=== PATIENT | male | born 1975 | race Caucasian/White ===

== ENCOUNTER 2017-10-29 13:06 | Emergency (ER) | payer BC ==
[2017-10-29 14:00] VITALS: BP 140/79; PULSE 77; RESP 20; TEMP 99.3
[2017-10-29 14:40] LABS: Amphetamine Screen,Urine Not Detected (NotDetected); Barbiturate Screen,Urine Not Detected (NotDetected); Benzodiazepines Screen,Urine Not Detected (NotDetected); Cocaine Screen,Urine Not Detected (NotDetected); Methadone Screen, Urine Not Detected (NotDetected); Opiate Screen,Urine Not Detected (NotDetected); Oxycodone Screen, Urine Not Detected (NotDetected); Phencyclidine Screen,Urine Not Detected (NotDetected); Tricyclic Antidepressant,Urine Not Detected (NotDetected); Urn Cannabinoid Scrn Not Detected (NotDetected)
--- NOTE | 2017-10-29 15:10 | ED ---
Psych HPI - General Chief Complaint: Psychiatric Symptoms Stated Complaint: Mental Health Eval Time Seen by Provider: 10/29/17 14:02 Source: patient, family, RN notes reviewed Mode of arrival: ambulatory Limitations: no limitations - History of Present Illness Initial Comments: 41-year-old male presents emergency from for psychiatric evaluation. Patient states she's having racing thoughts, anxiety. Patient is not suicidal. Patient states she just cannot tolerate the patient thoughts. Patient states she's been admitted several times in the past. Denies illicit drug use he doesn 't consume alcohol use. Patient has no physical complaints. Patient states he used to be on psychiatric medications though discontinued them himself. - Related Data Home Medications Medication Instructions Recorded Confirmed No Known Home Medications [No 10/29/17 10/29/17 Known Home Medications] Allergies Allergy/AdvReac Type Severity Reaction Status Date / Time Penicillins Allergy Unknown Verified 10/29/17 14:14 Childhood Review of Systems ROS Statement: Those systems with pertinent positive or pertinent negative responses have been documented in the HPI. ROS Other: All systems not noted in ROS Statement are negative. Past Medical History Past Medical History: No Reported History History of Any Multi-Drug Resistant Organisms: None Reported Past Surgical History: Joint Replacement, Orthopedic Surgery Past Anesthesia/Blood Transfusion Reactions: No Reported Reaction Past Psychological History: Anxiety, Depression Smoking Status: Current every day smoker Past Alcohol Use History: Heavy Past Drug Use History: Marijuana General Exam Limitations: no limitations General appearance: alert, in no apparent distress Head exam: Present: atraumatic, normocephalic, normal inspection ENT exam: Present: normal exam, normal oropharynx, mucous membranes moist, TM's normal bilaterally Neck exam: Present: normal inspection. Absent: tenderness, meningismus, lymphadenopathy Respiratory exam: Present: normal lung sounds bilaterally. Absent: respiratory distress, wheezes, rales, rhonchi, stridor Cardiovascular Exam: Present: regular rate, normal rhythm, normal heart sounds. Absent: systolic murmur, diastolic murmur, rubs, gallop, clicks Psychiatric exam: Present: flat affect Skin exam: Present: warm, dry, intact, normal color. Absent: rash Course Vital Signs 10/29/17 13:56 Temperature 99.3 F Pulse Rate 77 Respiratory 20 Rate Blood Pressure 140/79 O2 Sat by Pulse 96 Oximetry Medical Decision Making - Medical Decision Making 41-year-old male presented for psychiatric evaluation. Patient was evaluated by EPS case discussed with on-call psychiatrist Dr. Santana who recommends patient be discharged with outpatient services. Patient is not suicidal or homicidal. Patient does have some anxiety issues. - Lab Data Lab Results 10/29/17 Range/Units 14:08 Urine Opiates Screen Not Detected (NotDetected) Ur Oxycodone Screen Not Detected (NotDetected) Urine Methadone Screen Not Detected (NotDetected) Ur Propoxyphene Screen Not Detected (NotDetected) Ur Barbiturates Screen Not Detected (NotDetected) U Tricyclic Antidepress Not Detected (NotDetected) Ur Phencyclidine Scrn Not Detected (NotDetected) Ur Amphetamines Screen Not Detected (NotDetected) U Methamphetamines Scrn Not Detected (NotDetected) U Benzodiazepines Scrn Not Detected (NotDetected) Urine Cocaine Screen Not Detected (NotDetected) U Marijuana (THC) Screen Not Detected (NotDetected) Disposition Clinical Impression: Anxiety Disposition: HOME SELF-CARE Condition: Stable Instructions: Generalized Anxiety Disorder (ED) Additional Instructions: Please return to the Emergency Department if symptoms worsen or any other concerns. Referrals: Bandar Shannon MD [Primary Care Provider] - 1-2 days Time of Disposition: 16:05
== END 2017-10-29 16:21 | disposition home or self-care (01) ==
LOC: EC 13:06
DX: F41.9 Anxiety disorder, unspecified (principal); F17.200 Nicotine dependence, unspecified, uncomplicated; Z88.0 Allergy status to penicillin
CPT/HCPCS: 80306; 82075; 99284

== ENCOUNTER 2017-10-30 14:10 | Inpatient (IN) | payer BC ==
--- NOTE | 2017-10-30 14:54 | ED ---
Psych HPI - General Chief Complaint: Psychiatric Symptoms Stated Complaint: Mental Health Time Seen by Provider: 10/30/17 14:35 Source: patient, RN notes reviewed Mode of arrival: ambulatory Limitations: no limitations - Related Data Home Medications Medication Instructions Recorded Confirmed No Known Home Medications [No 10/29/17 10/30/17 Known Home Medications] Allergies Allergy/AdvReac Type Severity Reaction Status Date / Time Penicillins Allergy Unknown Verified 10/30/17 14:48 Childhood Review of Systems ROS Statement: Those systems with pertinent positive or pertinent negative responses have been documented in the HPI. ROS Other: All systems not noted in ROS Statement are negative. Past Medical History Past Medical History: No Reported History History of Any Multi-Drug Resistant Organisms: None Reported Past Surgical History: Joint Replacement, Orthopedic Surgery Past Anesthesia/Blood Transfusion Reactions: No Reported Reaction Past Psychological History: Anxiety, Depression Smoking Status: Current every day smoker Past Alcohol Use History: Heavy Past Drug Use History: Marijuana General Exam Limitations: no limitations General appearance: alert, in no apparent distress Head exam: Present: atraumatic, normocephalic, normal inspection Eye exam: Present: normal appearance, PERRL, EOMI. Absent: scleral icterus, conjunctival injection, periorbital swelling ENT exam: Present: normal exam, normal oropharynx, mucous membranes moist, TM's normal bilaterally Neck exam: Present: normal inspection, full ROM. Absent: tenderness, meningismus, lymphadenopathy Respiratory exam: Present: normal lung sounds bilaterally. Absent: respiratory distress, wheezes, rales, rhonchi, stridor Cardiovascular Exam: Present: regular rate, normal rhythm, normal heart sounds. Absent: systolic murmur, diastolic murmur, rubs, gallop, clicks Neurological exam: Present: alert, oriented X3, CN II-XII intact Psychiatric exam: Present: anxious Skin exam: Present: warm, dry, intact, normal color. Absent: rash Course Vital Signs 10/30/17 14:31 Temperature 98.7 F Pulse Rate 100 Respiratory 20 Rate Blood Pressure 174/88 O2 Sat by Pulse 100 Oximetry Medical Decision Making - Lab Data Lab Results 10/30/17 Range/Units 14:39 Urine Opiates Screen Not Detected (NotDetected) Ur Oxycodone Screen Not Detected (NotDetected) Urine Methadone Screen Not Detected (NotDetected) Ur Propoxyphene Screen Not Detected (NotDetected) Ur Barbiturates Screen Not Detected (NotDetected) U Tricyclic Antidepress Not Detected (NotDetected) Ur Phencyclidine Scrn Not Detected (NotDetected) Ur Amphetamines Screen Not Detected (NotDetected) U Methamphetamines Scrn Not Detected (NotDetected) U Benzodiazepines Scrn Not Detected (NotDetected) Urine Cocaine Screen Not Detected (NotDetected) U Marijuana (THC) Screen Not Detected (NotDetected) Disposition Clinical Impression: Bipolar disorder Disposition: ADMITTED IP TO THIS HOSP
[2017-10-30 15:50] LABS: Amphetamine Screen,Urine Not Detected (NotDetected); Barbiturate Screen,Urine Not Detected (NotDetected); Benzodiazepines Screen,Urine Not Detected (NotDetected); Cocaine Screen,Urine Not Detected (NotDetected); Methadone Screen, Urine Not Detected (NotDetected); Opiate Screen,Urine Not Detected (NotDetected); Oxycodone Screen, Urine Not Detected (NotDetected); Phencyclidine Screen,Urine Not Detected (NotDetected); Tricyclic Antidepressant,Urine Not Detected (NotDetected); Urn Cannabinoid Scrn Not Detected (NotDetected)
[2017-10-30] MEDS ORDERED: ZIPRASIDONE 20 MG VIAL IM PRN (17:04)
[2017-10-30] MEDS ORDERED: MAGNESIUM HYDROXIDE 2,400 MG/10 ML CUP PO PRN (17:04)
[2017-10-30] MEDS ORDERED: MAG HYDROX/AL HYDROX/SIMETH 30 ML CUP PO PRN (17:04)
[2017-10-30 17:13] VITALS: BMI 41.2
[2017-10-30] MEDS: LORazepam 1 MG TAB PO PRN (17:21)
[2017-10-30] MEDS: NICOTINE 21MG/24HR PATCH TRANSDERM SCH (17:21)
[2017-10-31] MEDS: LORazepam 1 MG TAB PO PRN (08:21)
[2017-10-31] MEDS: NICOTINE 21MG/24HR PATCH TRANSDERM SCH (08:21)
[2017-10-31 09:10] LABS: Basophils # (A) 0.1 k/uL (0-0.2); Basophils % (A) 1 %; Eosinophils # (A) 0.1 k/uL (0-0.7); Eosinophils % (A) 2 %; HCT 49.4 % (39.0-53.0); HGB 16.8 gm/dL (13.0-17.5); Lymphocytes # (A) 1.6 k/uL (1.0-4.8); Lymphocytes % (A) 29 %; MCH 31.7 pg (25.0-35.0); MCHC 33.9 g/dL (31.0-37.0); MCV 93.5 fL (80.0-100.0); Mean Platelet Volume 7.6; Monocytes # (A) 0.3 k/uL (0-1.0); Monocytes % (A) 6 %; Neutrophils # (A) 3.2 k/uL (1.3-7.7); Neutrophils % (A) 60 %; Platelet Count 216 k/uL (150-450); RBC 5.29 m/uL (4.30-5.90); RDW 14.3 % (11.5-15.5); WBC 5.4 k/uL (3.8-10.6)
[2017-10-31 09:21] LABS: ALT 91 U/L (21-72); AST 42 U/L (17-59); Albumin 4.5 g/dL (3.5-5.0); Alkaline Phosphatase 61 U/L (38-126); Anion Gap 12 mmol/L; Blood Urea Nitrogen 16 mg/dL (9-20); Calcium 9.7 mg/dL (8.4-10.2); Carbon Dioxide 23 mmol/L (22-30); Chloride 108 mmol/L (98-107); Cholesterol 150 mg/dL (<200); Glucose 130 mg/dL (74-99); HDL Cholesterol 56 mg/dL (40-60); LDL Cholesterol,Calculated 79 mg/dL (0-99); Potassium 4.4 mmol/L (3.5-5.1); Sodium 143 mmol/L (137-145); Total Bilirubin 0.9 mg/dL (0.2-1.3); Total Protein 6.8 g/dL (6.3-8.2); Triglycerides 73 mg/dL (<150)
[2017-10-31 16:39] LABS: Hemoglobin A1C 5.1 % (4.0-6.0)
--- NOTE | 2017-10-31 17:28 | P.CON ---
Consult Note - . Consult date: 10/31/17 Assessment/Plan:: Mr. Reveles is a 41-year-old male with a past medical history of bipolar disorder admitted to the psych unit for severe anxiety and anger issues. We have been consulted for a medical evaluation. Patient denies having any past medical history and he does not take any medications on a regular basis. Patient has been having racing thoughts and unable to concentrate. He was having issues with anxiety and anger management. He has history of bipolar disorder and stopped taking his medication. Patient reports smoking marijuana and drinking alcohol on a regular basis. He denies having any chest pain and difficulty breathing, cough. He denies having any nausea vomiting, abdominal pain, constipation, diarrhea.. He denies having any dysuria or hematuria. Except for his anger management and anxiety issues he does not have any active complaints. During my conversation with the patient he was angry, but would not tell me what was going on. REVIEW OF SYSTEMS: NEURO:No c/o weakness of the extremties, No facial droop, No speech abnormalities. VASCULAR: Peripheral nervous system within the normal limits no edema HEMATOLOGIC: No history of easy bleeding and bruising . No recent infections . RESPIRATORY: No cough, No SOB, No chest discomfort. IMMUNE: No infections INTEGUMENT: no rashes OPHTHALMOLOGIC: No blurry vision and no eye discharge : No dysuria or hematuria CARDIAC: No chest pain , shortness of breath , paroxysmal nocturnal dyspnea MUSCULOSKELETAL : No Aches or pains in the joints or muscles. GI: No abdominal pain, Nausea or vomiting. No constipation or diarrhea. Past Medical History Past Medical History: No Reported History History of Any Multi-Drug Resistant Organisms: None Reported Past Surgical History: Joint Replacement, Orthopedic Surgery Past Anesthesia/Blood Transfusion Reactions: No Reported Reaction Past Psychological History: Anxiety, Depression Smoking Status: Current every day smoker Past Alcohol Use History: Heavy Past Drug Use History: Marijuana Home Medications Medication Instructions Recorded Confirmed No Known Home Medications [No 10/29/17 10/30/17 Known Home Medications] Allergies Allergy/AdvReac Type Severity Reaction Status Date / Time Penicillins Allergy Unknown Verified 10/30/17 14:48 Childhood General appearance: alert, in no apparent distress Head exam: Present: atraumatic, normocephalic, normal inspection Eye exam: Present: normal appearance, PERRL, EOMI. Absent: scleral icterus, conjunctival injection, periorbital swelling ENT exam: Present: normal exam, normal oropharynx, mucous membranes moist, TM's normal bilaterally Neck exam: Present: normal inspection, full ROM. Absent: tenderness, meningismus, lymphadenopathy Respiratory exam: Present: normal lung sounds bilaterally. Absent: respiratory distress, wheezes, rales, rhonchi, stridor Cardiovascular Exam: Present: regular rate, normal rhythm, normal heart sounds. Absent: systolic murmur, diastolic murmur, rubs, gallop, clicks Neurological exam: Present: alert, oriented X3, CN II-XII intact Psychiatric exam: Patient is angry Skin exam: Present: warm, dry, intact, normal color. Absent: rash ASSESSMENT Acute anxiety Bipolar disorder History of alcohol abuse History of marijuana use PLAN: Management of his anxiety and bipolar disorder as per primary services. Patient does not have any active ongoing medical issues. Patient's labs have been reviewed. Will follow the patient on as-needed basis. Thank you for the consult.
[2017-10-31] MEDS: ESCITALOPRAM 20 MG TAB PO SCH (18:03)
[2017-10-31] MEDS: OLANZapine 5 MG TAB PO SCH (18:03)
--- NOTE | 2017-10-31 21:09 | HP ---
HISTORY AND PHYSICAL IDENTIFYING DATA: Patient is a 41-year-old male. He lives alone. He was referred through the emergency room for evaluation. CHIEF COMPLAINT: The patient was depressed. He reported problems of severe anxiety and anger issues. He had racing thoughts. HISTORY OF PRESENT ILLNESS: The patient has had intermittent problems with depression over a number years. He notes that 10 years ago he had a psychiatric hospitalization for depression. At that time he got medications. He said he took them for 5 years. At 1 point, he ran out of the medications and then just stopped them. He had an admission here July 05 for anxiety and depression issues. He described a situation where he felt that someone was harassing him, it was not clear whether this was accurate or something possibly delusional. He was discharged on Abilify 10 mg a day. He says that he stopped the medication sometime in July. He was unclear about how he was doing at that time. He said the main reason for stopping the medicine is he did not like the side effects including that caused him problems with erections as well as interfered with sleep. He has not been on any psychotropic medications since then. He was somewhat vague about the issues leading up to his hospitalization now. According to the emergency room report, he came with his father. He was complaining of having increasing problems with anxiety and anger. There were no details noted. He was having racing thoughts. He had poor concentration. He reported a history of bipolar disorder. He indicated that he used alcohol on a regular basis. The patient says that he has been having some problems with depression. He feels that since he has gotten on the psychiatric unit, he has a little better outlook. He does say he is having a fair amount of anxiety. He thinks that it would be helpful to be on antidepressant medication. He also agreed to the idea that any medication for stress could be helpful for him as well. He was vague about any precipitants for coming to the hospital. He reports that his sleep has been down. He has some loss of motivation, energy and interest. He has been seen through [facility]. He is admitted for further evaluation. SUBSTANCE USE HISTORY: As above. PAST MEDICAL HISTORY: Past medical history and review of systems as per Dr. More. FAMILY AND SOCIAL HISTORY: I refer the reader to the admission note of Dr. Rosenbaum of 07/05/2017 for details. MENTAL STATUS EXAM: Patient was somewhat slowed in his movements. He spoke with a soft voice. He answered questions with brief responses. His thoughts were clear. His affect blunted. His mood reserved. He seemed somewhat distressed. There was no indication of thought disorder. On cognitive exam, he was oriented x3 and alert. Recent and remote memory were intact. He did make an effort to answer formal cognitive questions. Insight was uncertain. Judgment uncertain. Fund of knowledge and intellectual level average. PHYSICAL EXAM: As per medical consultation of Dr. More. ASSESSMENT: This 41-year-old male is diagnosed with major depression. There are questions as to whether he has had past issues with thought disorder. He has been off medications at different times. He is not able to clearly identify precipitants to his current situation. STRENGTHS: Include his ability to maintain himself free of depression without medications for extended period of time. WEAKNESS: Includes relapsing problems with depression. DIAGNOSES: 1. Major depression, recurrent with acute exacerbation, severe. 2. Rule out psychosis. RECOMMENDATIONS: Patient will be admitted for comprehensive medical psychiatric and psychosocial evaluation. We will engage the patient in individual group therapeutic activities. I had an extensive discussion with the patient regarding treatment options. He agreed to get started on an antidepressant. He also felt that medication for augmentation of his antidepressant and to help reduce stress reactions would be a positive. As such, I will start the patient on Lexapro 20 mg a day which he felt had helped him in the past. I will also start the patient on Zyprexa 5 mg twice a day. I reviewed indications for his medications. We discussed side effects and potential negative affects including metabolics. We will focus on stabilization and discharge planning. MMODL / IJN: [id number] /
[2017-11-01] MEDS: NICOTINE 21MG/24HR PATCH TRANSDERM SCH (08:16)
[2017-11-01] MEDS: LORazepam 1 MG TAB PO PRN (08:17)
[2017-11-01] MEDS: ESCITALOPRAM 20 MG TAB PO SCH (08:17)
[2017-11-01] MEDS: OLANZapine 5 MG TAB PO SCH ×2 (08:31→20:29)
--- NOTE | 2017-11-01 20:05 | PN ---
PROGRESS NOTE DATE OF SERVICE: 11/01/2017. CHIEF COMPLAINT: The patient was depressed. He reported problems with severe anxiety and anger issues. He had racing thoughts. INTERVAL HISTORY: Patient has been doing fair. He had a quiet evening last night. He said he slept fairly well. Today he has been up. He attended a couple groups yesterday and has been attending most groups today. It is noteworthy that in one group he shared "I came here to get my head straight getting put on medications." The patient reports feeling a little calmer. The patient says that he is doing somewhat better with less anxiety. He said that the problems were showing up at his work for about a week before he came into the hospital. When I tried to detail with the patient what was going on, he was not able to provide any details. At one point, he said he was not acting normal, but then could not describe it any further than that. 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 He had previously been on Abilify after his last admission in early July. He said he took it for a few weeks and then stopped it. He said he stopped it because he did not like the side effects, though he could not tell me what those side effects were. He has been off of medications until just recently. He has not had change in his general health. He tolerates his psychotropic medications. MENTAL STATUS: Patient sat without restlessness. Eye contact was fair. Psychomotor activity was slowed. He answered questions with 1 or 2 word responses. He did not say much. His affect was flat. His mood withdrawn. It was difficult to say if he was distressed. ASSESSMENT: I will continue the current diagnosis and treatment plan. I will continue psychotropic medications the same. I discussed with the patient that we might look at switching his medication just to bedtime to make it more reasonable to stay with his medication. We might consider titrating up on his medicine to a total of 15-20 mg a day. We will continue to focus on stabilization and discharge planning. NEVAEH / RAMONA: [id number] /
[2017-11-02 06:27] VITALS: RESP 16
[2017-11-02] MEDS: NICOTINE 21MG/24HR PATCH TRANSDERM SCH (08:21)
[2017-11-02] MEDS: ESCITALOPRAM 20 MG TAB PO SCH (08:21)
[2017-11-02] MEDS: OLANZapine 5 MG TAB PO SCH (08:21)
--- NOTE | 2017-11-02 20:02 | PN ---
PROGRESS NOTE DATE OF SERVICE: 11/02/2017 CHIEF COMPLAINT: The patient was depressed. He reported problems with severe anxiety and anger issues. He had racing thoughts. INTERVAL HISTORY: Patient has been doing fairly well by his report. He says his mood is better. He has a better outlook. He did attend groups today. He says he feels a little more comfortable overall in the milieu. He does not interact too much with others. He has been appropriate in his manner. He has not shown issues of thought disorder. He had a family meeting with his father today to address some discharge planning issues. It is noteworthy that father says one issue that the patient seems to struggle with is his focus on the person "Amaris." This does seem to cause a lot of distress for the patient. He is very reluctant to talk about this situation, especially with his father or with staff. The best that we can tell, much of the issue around Amaris is tied up in delusional thinking. Father believes that the patient has been making progress and should be ready to be discharged by Tuesday. The patient was in agreement with that as well. He has not had change in his general health. He tolerates his psychotropic medications. MENTAL STATUS: Patient gave fair eye contact. Psychomotor activity was slowed. Speech was monotone. He answered questions with brief responses. His thoughts were clear, his affect blunted, his mood reserved. It was difficult to say if he was distressed at all. ASSESSMENT: I will continue the current diagnosis and treatment plan. It is noted that the patient continues to obsess about the person named "Amaris." This is very likely persistent delusional thought. I will increase the patient's Zyprexa to 20 mg at bedtime. We will continue to focus on stabilization and discharge planning. I would look to discharge the patient by the end of the week. MMODL / IJN: [id number] /
[2017-11-02] MEDS: OLANZapine 10 MG TAB PO SCH (20:10)
[2017-11-03] MEDS: NICOTINE 21MG/24HR PATCH TRANSDERM SCH (08:49)
[2017-11-03] MEDS: ESCITALOPRAM 20 MG TAB PO SCH (08:49)
[2017-11-03] MEDS: ACETAMINOPHEN TAB 325 MG TAB PO PRN ×2 (14:08→20:32)
[2017-11-03] MEDS: OLANZapine 10 MG TAB PO SCH (20:32)
--- NOTE | 2017-11-03 21:42 | PN ---
PROGRESS NOTE DATE OF SERVICE: 11/03/2017. CHIEF COMPLAINT: The patient was depressed. He reported problems with severe anxiety and anger issues. He had racing thoughts. INTERVAL HISTORY: The patient has been doing fair. He says overall he thinks he is doing better. He feels a little calmer. His thoughts are clear. He says that he believes he is pretty well prepared for discharge on Tuesday. He was able to talk about discharge issues. He has not had change in his general health. He tolerates his psychotropic medications. MENTAL STATUS: Patient gave good eye contact. He was a little rigid in his manner. His affect was somewhat intense. His mood dysphoric. He did not seem to be significantly distressed. ASSESSMENT: I will continue the current diagnosis and treatment plan. I will continue psychotropic medications the same. The patient has been making progress. We will aim for discharge tomorrow. NEVAEH / RAMONA: [id number] /
[2017-11-04 02:24] VITALS: BP 124/69; PULSE 85; TEMP 97.6
[2017-11-04] MEDS: ESCITALOPRAM 20 MG TAB PO SCH (08:15)
[2017-11-04] MEDS: ACETAMINOPHEN TAB 325 MG TAB PO PRN (08:15)
--- NOTE | 2017-11-04 10:16 | DS ---
DISCHARGE SUMMARY DATE OF SERVICE: 11/04/2017 DATE OF ADMISSION: 10/30/2017 DATE OF DISCHARGE: 11/04/2017 ADMISSION AND DISCHARGE DIAGNOSES: 1. Major depression, recurrent with acute exacerbation, severe. 2. Rule out psychosis. HISTORY OF PRESENT ILLNESS: The patient is a 41-year-old male. He has had intermittent problems with depression over a number of years. He has had past psychiatric hospitalizations going back over the last 10 years. He had a recent past hospitalization at this was facility July 05, he was discharged on Abilify 10 mg a day. He said he took the medicines for a short period of time, though some time in July he stopped taking the medications and has been off medications since. He was vague about issues leading up to his hospitalization, though he could acknowledge that in the last few weeks prior to coming into the hospital, he was disorganized in his behavior. He was at his work and he said others were noticing that he was not functioning appropriately and there it is a question of a person who he focuses on that becomes an overwhelming situation for him. The best others can tell this person seems to be primarily a delusional image about a woman who he has some kind of relationship with. He was sleeping poorly. He was anxious. He had been seen through [facility], though it is unclear to what extent he continued with the followup. He was admitted for further evaluation. PAST MEDICAL HISTORY AND PHYSICAL EXAM: As per medical consultation of Dr. More. MENTAL STATUS EXAM: Patient was slowed in his movements. He spoke with a soft voice. He answered questions with brief responses. His thoughts were clear. His affect blunted. Mood reserved. He was moderately distressed. There was no immediate evidence for thought disorder. Cognition was clear. COURSE OF HOSPITALIZATION: The patient was admitted for a comprehensive medical psychiatric and psychosocial evaluation. We engaged the patient in individual and group therapeutic activities. Oh admission, the patient was started on Lexapro. The dose was titrated to 20 mg a day. He was also started on Zyprexa which was titrated up to 20 mg at bedtime. Initially, the patient was quite withdrawn. He was spend quite a bit of time in his room. He did not really interact with others. He was cooperative, though he shared very little with staff on one-to-one sessions. We had a family meeting with the patient's father. It is noted that there was not a lot of substantial information communicated regarding the patient's current situation or any issues that should be attended to as part of discharge planning. Father did make reference to the woman that the patient often focuses on, especially when he has more problems with mood difficulties. The patient himself would say very little about that situation. As his hospitalization progressed, the patient's mood improved. He had a better outlook. He was able to attend some group activities. He would come out and interact a little bit more. He was able to engage in discharge planning. CONDITION AT DISCHARGE: Patient was stable. Mood was improved. His thoughts were clear. There was no clear indication of thought disorder. RECOMMENDATIONS AND FOLLOWUP: The patient is discharged to home. DISCHARGE MEDICATIONS: 1. Prozac 20 mg a day. 2. Zyprexa 20 mg at bedtime. He has a followup appointment with Dr. Shannon in 1 to 2 days. He is referred back to [facility]. NEVAEH / RAMONA: [id number] /
== END 2017-11-04 12:49 | disposition home or self-care (01) | DRG 885 ==
LOC: EC 14:10 → 3MHU 16:12
PROVIDERS: ADMIT Psychiatry & Neurology Psychiatry; ATTEND Psychiatry & Neurology Psychiatry
DX: F33.2 Major depressive disorder, recurrent severe without psychotic features (principal); F12.90 Cannabis use, unspecified, uncomplicated; F17.200 Nicotine dependence, unspecified, uncomplicated; F41.9 Anxiety disorder, unspecified; Z79.899 Other long term (current) drug therapy; Z88.0 Allergy status to penicillin
CPT/HCPCS: 80053; 80061; 80306; 82075; 83036; 84443; 85025; 99285

== ENCOUNTER 2018-10-07 15:29 | Inpatient (IN) | payer BC ==
--- NOTE | 2018-10-07 15:48 | ED ---
Psych HPI - General Chief Complaint: Psychiatric Symptoms Stated Complaint: Mental Health Time Seen by Provider: 10/07/18 15:34 Source: patient, RN notes reviewed, old records reviewed Mode of arrival: ambulatory - History of Present Illness Initial Comments: This is a 42-year-old male the ER for evaluation by psychiatry, patient states he's having a mental break having racing thoughts having hallucinations and delusional thoughts. Significant history of the same. Currently denies any drugs or alcohol MD Complaint: altered mental status -: unknown Associated Psychiatric Symptoms: racing thoughts, auditory hallucinations History of same: Yes Quality: constant, getting worse Improves With: none Worsens With: none Associated Symptoms: denies other symptoms Treatments Prior to Arrival: none - Related Data Home Medications Medication Instructions Recorded Confirmed No Known Home Medications 10/07/18 10/07/18 Allergies Allergy/AdvReac Type Severity Reaction Status Date / Time Penicillins Allergy Unknown Unknown Verified 10/08/18 06:59 Childhood Review of Systems ROS Statement: Those systems with pertinent positive or pertinent negative responses have been documented in the HPI. ROS Other: All systems not noted in ROS Statement are negative. Past Medical History Past Medical History: No Reported History History of Any Multi-Drug Resistant Organisms: None Reported Past Surgical History: Joint Replacement, Orthopedic Surgery Past Anesthesia/Blood Transfusion Reactions: No Reported Reaction Past Psychological History: Anxiety, Depression Smoking Status: Current every day smoker Past Alcohol Use History: Heavy, Occasional Past Drug Use History: Marijuana General Exam Limitations: no limitations General appearance: alert, in no apparent distress Head exam: Present: atraumatic, normocephalic, normal inspection Eye exam: Present: normal appearance, PERRL, EOMI. Absent: scleral icterus, conjunctival injection, periorbital swelling ENT exam: Present: normal exam, mucous membranes moist Neck exam: Present: normal inspection. Absent: tenderness, meningismus, lymphadenopathy Respiratory exam: Present: normal lung sounds bilaterally. Absent: respiratory distress, wheezes, rales, rhonchi, stridor Cardiovascular Exam: Present: regular rate, normal rhythm, normal heart sounds. Absent: systolic murmur, diastolic murmur, rubs, gallop, clicks GI/Abdominal exam: Present: soft, normal bowel sounds. Absent: distended, tenderness, guarding, rebound, rigid Extremities exam: Present: normal inspection, full ROM, normal capillary refill. Absent: tenderness, pedal edema, joint swelling, calf tenderness Back exam: Present: normal inspection Neurological exam: Present: alert, oriented X3, CN II-XII intact Psychiatric exam: Present: normal affect, normal mood Skin exam: Present: warm, dry, intact, normal color. Absent: rash Course Vital Signs 10/07/18 10/07/18 10/07/18 15:31 18:54 19:59 Temperature 97.8 F 98.7 F 98.6 F Pulse Rate 82 85 Pulse Rate [ 73 Right] Respiratory 20 18 18 Rate Blood Pressure 163/107 170/99 Blood Pressure 163/90 [Right Arm] O2 Sat by Pulse 98 97 Oximetry 10/07/18 20:00 Temperature 98.6 F Pulse Rate Pulse Rate [ 73 Right] Respiratory 18 Rate Blood Pressure Blood Pressure 163/90 [Right Arm] O2 Sat by Pulse Oximetry Medical Decision Making - Medical Decision Making 42 male the ER for evasive psychiatric illness. Patient be admitted for psychiatric evaluation and treatment - Lab Data Result diagrams: 10/08/18 07:37 10/08/18 07:37 Disposition Clinical Impression: Bipolar disorder, Ayleen, Psychosis Disposition: TRANSFER TO PSYCH HOSP/UNIT Condition: Fair Is patient prescribed a controlled substance at d/c from ED?: No
[2018-10-07] MEDS ORDERED: LORazepam 1 MG TAB PO STA (18:49)
[2018-10-07] MEDS ORDERED: MAGNESIUM HYDROXIDE 2,400 MG/10 ML CUP PO PRN (19:56)
[2018-10-07] MEDS ORDERED: ACETAMINOPHEN TAB 325 MG TAB PO PRN (19:56)
[2018-10-07] MEDS ORDERED: MAG HYDROX/AL HYDROX/SIMETH 30 ML CUP PO PRN (19:56)
[2018-10-07 21:29] LABS: Appearance,Urine Clear (Clear); Bilirubin,Urine Negative (Negative); Blood,Urine Negative (Negative); Color,Urine Yellow; Glucose,Urine (UA) Negative (Negative); Ketones,Urine Negative (Negative); Leukocyte Esterase,Urine Negative (Negative); Nitrite,Urine Negative (Negative); PH, Urine 5.5 (5.0-8.0); Protein,Urine Negative (Negative); Urobilinogen,Urine <2.0 mg/dL (<2.0)
[2018-10-07] MEDS ORDERED: ZIPRASIDONE 20 MG VIAL IM PRN (21:41)
[2018-10-07] MEDS ORDERED: LORazepam 1 MG TAB PO PRN (21:42)
[2018-10-07] MEDS: NICOTINE 14MG/24HR PATCH TRANSDERM SCH (22:00)
--- NOTE | 2018-10-08 06:54 | P.MDCNMH ---
History of Present Illness H&P Date: 10/08/18 Chief Complaint: Medical evaluation 42-year-old male with no significant past medical history. Patient was brought to the hospital for psychiatric evaluation. Patient reports that his father brought to the hospital due to racing and delusional thoughts. He denies any suicidal or homicidal ideation. He denies any physical complaints at this time denies any fevers chills denies any coughing chest pain or trouble breathing denies any abdominal pain nausea vomiting denies any GI bleeding denies any changes in his urinary or bowel habits. Review of Systems Pertinent positives as noted in HPI. All other systems were reviewed and are negative Past Medical History Past Medical History: No Reported History History of Any Multi-Drug Resistant Organisms: None Reported Past Surgical History: Joint Replacement, Orthopedic Surgery Past Anesthesia/Blood Transfusion Reactions: No Reported Reaction Past Psychological History: Anxiety, Depression Smoking Status: Current every day smoker Past Alcohol Use History: Heavy, Occasional Past Drug Use History: Marijuana Medications and Allergies Home Medications Medication Instructions Recorded Confirmed Type No Known Home Medications 10/07/18 10/07/18 History Allergies Allergy/AdvReac Type Severity Reaction Status Date / Time Penicillins Allergy Unknown Verified 10/07/18 16:02 Childhood Physical Exam Vitals: Vital Signs Temp Pulse Resp BP Pulse Ox 10/07/18 18:54 98.7 F 85 18 170/99 97 10/07/18 15:31 97.8 F 82 20 163/107 98 Intake and Output 10/07/18 10/07/18 10/08/18 14:59 22:59 06:59 Other: Weight 145.15 kg Constitutional: No acute distress, conversant, pleasant Eyes: Anicteric sclerae, moist conjunctiva, no lid-lag Pupils equal round reactive to light ENMT: NC/AT Oropharynx clear, no erythema, exudates Neck: Supple, FROM, no masses, or JVD No carotid bruits No thyromegaly Lungs: Clear to auscultation Clear to percussion Normal respiratory effort, no accessory muscle use Cardiovascular: Heart regular in rate and rhythm, No murmurs, gallops, or rubs No peripheral edema Abdominal: Soft Nontender, no guarding, rebound or rigidity Abdomen moving with respiration Normoactive bowel sounds No hepatomegaly, No splenomegaly No palpable mass No abdominal wall hernia noted Skin: Normal temperature, tone, texture, turgor No induration No subcutaneous nodules No rash, lesions No ulcers Extremities: No digital cyanosis No clubbing Pedal pulses intact and symmetrical Radial pulses intact and symmetrical No calf tenderness Psychiatric: Alert and oriented to person, place and time Exhibiting paranoid behavior Poor judgment Neuro Muscles Strength 5/5 in all 4 extremities Sensation to light touch grossly present throughout Cranial nerves II-XII grossly intact No focal sensory deficits Lymphatics: no palpable cervical or supraclavicular , or inguinal lymph nodes Cranial Nerve Examination - Cranial Nerves Cranial Nerve II- Optic: Intact Cranial Nerve III- Oculomotor: Intact Cranial Nerve IV- Trochlear: Intact Cranial Nerve V- Trigeminal: Intact Cranial Nerve - Abducens: Intact Cranial Nerve VII- Facial: Intact Cranial Nerve VIII- Auditory: Intact Cranial Nerve IX- Glossopharyngeal: Intact Cranial Nerve X- Vagus: Intact Cranial Nerve XI- Accessory: Intact Cranial Nerve XII- Hypoglossal: Intact Assessment and Plan Assessment: 42 -year-old male with no significant past medical history was brought to the hospital for psychiatric evaluation due to racing and delusional thoughts patient currently denies any medical concerns Plan: Paranoid behavior Delusional thoughts Management per psych DVT prophylaxis low risk patient is ambulatory Obesity Counseling for weight loss and left some modification Thank you for allowing us to participate in the care of this patient. We will follow peripherally. Do not hesitate to contact us with questions. Someone can be reached from the [facility] hospitalist group at all hours of the day at [phone].
[2018-10-08 08:32] LABS: Basophils # (A) 0.1 k/uL (0-0.2); Basophils % (A) 1 %; Eosinophils # (A) 0.2 k/uL (0-0.7); Eosinophils % (A) 6 %; HCT 47.5 % (39.0-53.0); HGB 16.2 gm/dL (13.0-17.5); Lymphocytes # (A) 1.2 k/uL (1.0-4.8); Lymphocytes % (A) 33 %; MCH 31.5 pg (25.0-35.0); MCHC 34.1 g/dL (31.0-37.0); MCV 92.4 fL (80.0-100.0); Mean Platelet Volume 6.9; Monocytes # (A) 0.2 k/uL (0-1.0); Monocytes % (A) 7 %; Neutrophils # (A) 1.9 k/uL (1.3-7.7); Neutrophils % (A) 51 %; Platelet Count 163 k/uL (150-450); RBC 5.15 m/uL (4.30-5.90); RDW 13.2 % (11.5-15.5); WBC 3.7 k/uL (3.8-10.6)
[2018-10-08 08:39] LABS: ALT 43 U/L (21-72); AST 27 U/L (17-59); Albumin 3.9 g/dL (3.5-5.0); Alkaline Phosphatase 71 U/L (38-126); Anion Gap 8 mmol/L; Bilirubin,Unconjugated 0.6 mg/dL (0.0-1.1); Blood Urea Nitrogen 15 mg/dL (9-20); Calcium 8.7 mg/dL (8.4-10.2); Carbon Dioxide 24 mmol/L (22-30); Chloride 109 mmol/L (98-107); Cholesterol 173 mg/dL (<200); Glucose 100 mg/dL (74-99); HDL Cholesterol 50 mg/dL (40-60); LDL Cholesterol,Calculated 105 mg/dL (0-99); Potassium 4.4 mmol/L (3.5-5.1); Sodium 141 mmol/L (137-145); Total Bilirubin 0.6 mg/dL (0.2-1.3); Total Protein 6.4 g/dL (6.3-8.2); Triglycerides 91 mg/dL (<150)
[2018-10-08] MEDS: OLANZapine 5 MG TAB PO SCH ×2 (09:41→20:34)
[2018-10-08] MEDS: ESCITALOPRAM 20 MG TAB PO SCH (09:41)
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
[2018-10-08] MEDS: NICOTINE 14MG/24HR PATCH TRANSDERM SCH (20:35)
--- NOTE | 2018-10-08 22:32 | P.MDCNMH ---
History of Present Illness H&P Date: 10/08/18 Chief Complaint: Paranoid Patient is a 48-year-old male with a known history of smoking, polysubstance abuse including cocaine use and marijuana use brought to ER by his father for evaluation by psychiatry. Patient states that he was very disturbed after he had a breakup with his girlfriend. Patient has been having hallucinations and delusions and became paranoid. Currently patient denied any complaints of chest pain or shortness of breath. No nausea vomiting or abdominal pain. No diarrhea or dysuria. No headache or dizziness or lightheadedness. No cough or sputum production. No fever no chills. Review of Systems Constitutional: Patient denies any fever or chills . No generalized weakness or weight loss. Abdomen: Patient denied nausea vomiting and diarrhea and abdominal pain. Cardiovascular: Patient denies any chest pain or short of breath no palpitations. Respiratory: patient denied any cough is from production. No shortness of breath Neurologic: Patient denied any numbness or tingling headache. Musculoskeletal: Patient denies any complaints of joint swelling or deformity. Skin: Negative Psychiatric: Negative Endocrine: No heat or cold intolerance. No recent weight gain. Genitourinary: No dysuria or hematuria. All other 14 point ROS negative except the above Past Medical History Past Medical History: No Reported History History of Any Multi-Drug Resistant Organisms: None Reported Past Surgical History: Joint Replacement, Orthopedic Surgery Past Anesthesia/Blood Transfusion Reactions: No Reported Reaction Past Psychological History: Anxiety, Depression Smoking Status: Current every day smoker Past Alcohol Use History: Heavy, Occasional Past Drug Use History: Marijuana Medications and Allergies Home Medications Medication Instructions Recorded Confirmed Type No Known Home Medications 10/07/18 10/07/18 History Allergies Allergy/AdvReac Type Severity Reaction Status Date / Time Penicillins Allergy Unknown Unknown Verified 10/08/18 06:59 Childhood Physical Exam Vitals: Vital Signs Temp Pulse Pulse Resp BP BP Pulse Ox 10/08/18 06:22 97.8 F 70 16 117/57 10/07/18 20:00 98.6 F 73 18 163/90 10/07/18 19:59 98.6 F 73 18 163/90 10/07/18 18:54 98.7 F 85 18 170/99 97 10/07/18 15:31 97.8 F 82 20 163/107 98 Intake and Output 12/10/08/18 10/08/18 22:59 06:59 14:59 Other: Weight 145.15 kg 147.872 kg 150.1 kg PHYSICAL EXAMINATION: Patient is lying in the bed comfortably, no acute distress, awake alert and oriented. Morbidly obese. HEENT: Normocephalic. Neck is supple. Pupils reactive. Nostrils clear. Oral cavity is moist. Ears reveal no drainage. Neck reveals no JVD, carotid bruits, or thyromegaly. CHEST EXAMINATION: Trachea is central. Symmetrical expansion. Lung [place] clear to auscultation and percussion. CARDIAC: Normal S1, S2 with no gallops. No murmurs ABDOMEN: Soft. Bowel sounds normal. No organomegaly. No abdominal bruits. Extremities: reveal no edema. No clubbing or cyanosis Neurologically awake, alert, oriented x3 with well-coordinated movements. No focal deficits noted Skin: No rash or skin lesions. Psychiatric: Coperative. Nonsuicidal Musculoskeletal: No joint swelling or deformity. Normal range of motion. Cranial Nerve Examination - Cranial Nerves Cranial Nerve I- Olfactory: Intact Cranial Nerve II- Optic: Intact Cranial Nerve III- Oculomotor: Intact Cranial Nerve IV- Trochlear: Intact Cranial Nerve V- Trigeminal: Intact Cranial Nerve - Abducens: Intact Cranial Nerve VII- Facial: Intact Cranial Nerve VIII- Auditory: Intact Cranial Nerve IX- Glossopharyngeal: Intact Cranial Nerve X- Vagus: Intact Cranial Nerve XI- Accessory: Intact Cranial Nerve XII- Hypoglossal: Intact Results CBC & Chem 7: 10/08/18 07:37 10/08/18 07:37 Labs: Abnormal Lab Results - Last 24 Hours (Table) 10/08/18 10/08/18 Range/Units 07:37 07:37 WBC 3.7 L (3.8-10.6) k/uL Chloride 109 H (98-107) mmol/L Glucose 100 H (74-99) mg/dL LDL Cholesterol, Calc 105 H (0-99) mg/dL Assessment and Plan Assessment: Possible schizophrenia with paranoid ideation Major depression Cigarette smoking. Patient uses vapor. Polysubstance abuse including cocaine and marijuana Chronic back pain Morbid obesity BMI 42.5 DVT prophylaxis not needed.. Patient is ambulatory. Plan: Patient will be continued on psychiatric medications as per psychiatric. Pain management with Tylenol. Smoking cessation and substance abuse has been counseled extensively. We will continue to follow with you. Thank you for your consult.
[2018-10-09] MEDS: ESCITALOPRAM 20 MG TAB PO SCH (08:29)
[2018-10-09] MEDS: OLANZapine 5 MG TAB PO SCH ×2 (08:29→20:03)
[2018-10-09] MEDS: NICOTINE 14MG/24HR PATCH TRANSDERM SCH (08:30)
[2018-10-09 11:34] LABS: Urine Alcohol Negative (Negative); Urine Barbiturate Negative (Negative); Urine Cocaine Negative (Negative); Urine Methadone Negative (Negative); Urine Opiates Negative (Negative); Urine Phencyclidine Negative (Negative)
[2018-10-09 13:13] LABS: Hemoglobin A1C 5.2 % (4.0-6.0)
--- NOTE | 2018-10-09 14:25 | PN ---
PROGRESS NOTE DATE OF SERVICE: 10/09/2018 CHIEF COMPLAINT: The patient was agitated, angry and stated "I have gone off the rail." INTERVAL HISTORY: Patient has been doing fair. He had a quiet evening last night. He slept fair. Today he has been up. He attended the AT group at noon. He did request p.r.n. Ativan at 10:50. He said that seemed to help. He was having a lot of anxiety. He says that overall he feels he is doing a little bit better. His anxiety is less, even though he needed a p.r.n. He still has a down mood. His thoughts seem to be a little clear. He has a less tense distressed manner. He tends to keep to himself. He does not interact too much with others. He was appropriate in group. He was able to discuss discharge planning issues. He tolerates his psychotropic medications. MENTAL STATUS: Patient was in his room lying down. He gave fair eye contact. Psychomotor activity was slow. Speech was monotone. He answered questions with brief responses. His thoughts were clear. His affect was flat. He seemed to have a calmer, less angry manner overall. His mood was reserved. He did seem somewhat distressed, though significantly less compared to yesterday on admission. He continues to show signs of paranoid thinking. ASSESSMENT/PLAN: I will continue the current diagnosis and treatment plan. I will increase Zyprexa. He will continue 5 mg in the morning. We will go up to 50 mg at bedtime. He is also on Lexapro 20 mg a day. I discussed with the patient discharge planning issues including the possibility of his leaving by the end of the week if he has a good response to treatment. We talked about having his father come in for a family meeting possibly on Tuesday or as part of discharge planning. Will continue to focus on stabilization and discharge planning. MMODL / IJN: [id number] /
[2018-10-10] MEDS: OLANZapine 5 MG TAB PO SCH ×2 (07:51→19:50)
[2018-10-10] MEDS: NICOTINE 14MG/24HR PATCH TRANSDERM SCH (07:52)
[2018-10-10] MEDS: ESCITALOPRAM 20 MG TAB PO SCH (07:52)
--- NOTE | 2018-10-10 10:26 | PN ---
PROGRESS NOTE DATE OF SERVICE: 10/10/2018. CHIEF COMPLAINT: The patient was agitated, angry and stated "I have gone off the rail." INTERVAL HISTORY: Patient has been doing fair. He had a quiet evening last night. He slept well. Today he has mostly been in his room. He says that he has been attending groups though yesterday was documented he came to 1 of the 4 groups. Staff note that overall he seems to have a calmer manner. Anger issues are less. Staff did note that he seemed to have some kind of disagreement with his father. He says that the 2 of them had a misunderstanding and miscommunication. I do not have any specifics beyond that. Overall, patient seems to be showing some improvement in his mood with a calmer manner. Overall, he tolerates his psychotropic medications. MENTAL STATUS: Patient gave fair eye contact. Psychomotor activity was slowed. Speech was monotone. He answered questions with brief responses. He was not spontaneous or interactive. His affect was blunted. His mood quiet. He did appear to be distressed. He had a somewhat calmer less tense manner compared to on admission. ASSESSMENT: I will continue the current diagnosis and treatment plan. I will continue psychotropic medications the same. I discussed discharge planning issues with the patient. We will still try to encourage him to consider having some contact with father as part of discharge planning. The patient anticipates being discharged by the end of the week. NEVAEH / RAMONA: [id number] /
[2018-10-11] MEDS: ESCITALOPRAM 20 MG TAB PO SCH (07:37)
[2018-10-11] MEDS: OLANZapine 5 MG TAB PO SCH ×2 (07:37→20:10)
[2018-10-11] MEDS: NICOTINE 14MG/24HR PATCH TRANSDERM SCH (08:09)
--- NOTE | 2018-10-11 10:22 | P.PN ---
Subjective Progress Note Date: 10/11/18 Principal diagnosis: Major depressive disorder with psychotic features exacerbated by marijuana and nicotine use disorder moderate I came in because I need help with my mood and suicidal thoughts. Patient displays lower extremity motor movement and states that happens when he is nervous. He states he smokes marijuana and vamps nicotine. He does not want to stop either. Objective - Vital Signs Vital signs: Vital Signs Temp 97.3 F L 10/11/18 06:40 Pulse 98 10/11/18 06:40 Resp 18 10/11/18 06:40 BP 185/74 10/11/18 06:40 Pulse Ox 97 10/07/18 18:54 - Labs CBC & Chem 7: 10/08/18 07:37 10/08/18 07:37 Assessment and Plan (1) Major depressive disorder with psychotic features Narrative/Plan: This is a 42-year-old male the ER for evaluation by psychiatry, patient states he's having a mental break having racing thoughts having hallucinations and delusional thoughts. Significant history of the same. Currently denies any drugs or alcohol MD Complaint: altered mental status -: unknown Associated Psychiatric Symptoms: racing thoughts, auditory hallucinations History of same: Yes Quality: constant, getting worse Improves With: none Worsens With: none Associated Symptoms: denies other symptoms Treatments Prior to Arrival: none - Related Data Home Medications Medication Instructions Recorded Confirmed No Known Home Medications 10/07/18 10/07/18 Allergies Allergy/AdvReac Type Severity Reaction Status Date / Time Penicillins Allergy Unknown Unknown Verified 10/08/18 06:59 Childhood Past Medical History Past Medical History: No Reported History History of Any Multi-Drug Resistant Organisms: None Reported Past Surgical History: Joint Replacement, Orthopedic Surgery Past Anesthesia/Blood Transfusion Reactions: No Reported Reaction Past Psychological History: Anxiety, Depression Smoking Status: Current every day smoker Past Alcohol Use History: Heavy, Occasional Past Drug Use History: Marijuana History of Present Illness: Patient states that he has thoughts that a woman named Amaris has been hanging around, trying to him and his appeared at work and at his home. He states that he has dated her in the past and states that she is certain she is the patient's fianc. He states that even the drug safety assistant at his primary care's office told him this. Patient states he has not been taking medications because he stopped them 1-2 months ago and was being seen at [facility] counseling was last seen there in October of this year. He states on occasion his primary care physician has also been giving him meds. Patient states that he has used Xanax on occasion and was prescribed Xanax 0.5 mg, Strattera 80 mg a day, Abilify 10 mg a day and Lexapro 20 mg a day. He states that he stopped most of them because the side effects but could not elicit what those were. Patient states that he has slept about 4 hours a night recently states that this girl is following him and denied any suicidal or homicidal thoughts. He denied that he's having any racing thoughts and could not really tell me why he has not been going to work recently. Patient states that he has had these feelings about a woman in the past and this was around the time of his first admission, he states he was on medication for 5 years after his first admission and when he lost the medications on a vacation 5 years ago he stopped them. Patient states that he has been depressed in the past with suicidal thoughts but has never attempted. He states he was last depressed 5-6 years ago. He states that he also has had racing thoughts in the past at times talking too fast or too much and sleeping 3-4 hours a night. He states he has been impulsive in the past spending money using alcohol and drugs and also has had an increase in insects. But he denies any of these currently. Patient states he's been diagnosed with disc depression with psychotic features in the past. Patient also reports episodes of panic were his chest tightens he feels anxious and this occurs from time to time. Past Psychiatric History: Patient states he has 1 prior hospitalization here he thinks about 10 years ago and that was the first time he was ever treated. He states he was seen at [facility] for outpatient counseling. He states he has been on Seroquel in the past, Abilify, Strattera, Lexapro, Xanax and is unable to tell me what other medications he has been on. Patient denies any prior suicide attempts. 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 He states he is on inhaler and an antibiotic but could not tell me why. Current Visit: Yes Status: Acute Priority: Medium Code(s): F32.3 - MAJOR DEPRESSV DISORD, SINGLE EPSD, SEVERE W PSYCH FEATURES SNOMED Code(s): 66698844 Plan: Mental Status Examination - General Appearance: [casual, bizarre, appears older than stated age, Speech/Language: [spontaneous, slow, monotone, expressive, soft] Attitude/Behavior: [cooperative, indifferent] Mood: [euthymic, anxious, elated Affect: [full range] Orientation: [not time, person, place situation] Thought Content: [wnl Risk Factors: [he is not suicidal (ideations, plan), and/or Homicidal (ideations , plan), other] Perception: [ Denies hallucinations (auditory which has been a lifelong not an acute issue Thought Processes: [goal-oriented, Concentration/Attention Span: [wnl] [Per observation and interview with the patient] Recent Memory: [wnl] [ 2 or 3 out of 3 in 3 minutes] Remote Memory: [wnl] [past events, as related history] Intelligence: [ average[based on history, based on vocabulary, syntax, grammar, and content] Judgement: [good] [per patient's behavior/history of present illness] Insight: [good [understanding severity of illness/history of present illness] Plan: Continue olanzapine and Lexapro Patient was admitted on a voluntary basis, routine laboratory studies were ordered, medical consultation was requested the patient was placed on routine observations. Patient was also ordered group and activity therapy. Patient and I discussed the medications that he been treated on in the past and he stated that he felt better on the Seroquel so we discussed the use and side effects of Seroquel and he will begin Seroquel extended release 150 mg 1 hour prior to dinner. Patient requires hospitalization due to his psychotic symptoms and to stabilize his mood. Time with Patient: Less than 30
[2018-10-12 07:07] VITALS: BP 167/74; PULSE 72; RESP 16; TEMP 97.5
[2018-10-12] MEDS: ESCITALOPRAM 20 MG TAB PO SCH (08:16)
[2018-10-12] MEDS: OLANZapine 5 MG TAB PO SCH (08:16)
[2018-10-12] MEDS: NICOTINE 14MG/24HR PATCH TRANSDERM SCH (08:18)
--- NOTE | 2018-10-12 11:22 | P.DS ---
Providers Date of admission: 10/07/18 19:43 Expected date of discharge: 10/12/18 Attending physician: Lucho Alcazar DO Consults: 10/08/18 14:19 Consult Physician Routine Consulting Provider: Otis Correia Consult Reason/Comments: pt is a [facility] pt, and was seen by Neno duran for H and P Do you want consulting provider notified?: Already Contacted Primary care physician: Shiva Goddardbal - Discharge Diagnosis(es) (1) Major depressive disorder with psychotic features Major depressive disorder with psychotic features exacerbated by marijuana and nicotine use disorder moderate I came in because I need help with my mood and suicidal thoughts. Patient displays lower extremity motor movement and states that happens when he is nervous. He states he smokes marijuana and vamps nicotine. He does not want to stop either. Assessment and Plan (1) Major depressive disorder with psychotic features Narrative/Plan: This is a 42-year-old male the ER for evaluation by psychiatry, patient states he's having a mental break having racing thoughts having hallucinations and delusional thoughts. Significant history of the same. Currently denies any drugs or alcohol MD Complaint: altered mental status -: unknown Associated Psychiatric Symptoms: racing thoughts, auditory hallucinations History of same: Yes Quality: constant, getting worse Improves With: none Worsens With: none Associated Symptoms: denies other symptoms Treatments Prior to Arrival: none - Related Data Home Medications Medication Instructions Recorded Confirmed No Known Home Medications 10/07/18 10/07/18 Allergies Allergy/AdvReac Type Severity Reaction Status Date / Time Penicillins Allergy Unknown Unknown Verified 10/08/18 06:59 Childhood Past Medical History Past Medical History: No Reported History History of Any Multi-Drug Resistant Organisms: None Reported Past Surgical History: Joint Replacement, Orthopedic Surgery Past Anesthesia/Blood Transfusion Reactions: No Reported Reaction Past Psychological History: Anxiety, Depression Smoking Status: Current every day smoker Past Alcohol Use History: Heavy, Occasional Past Drug Use History: Marijuana History of Present Illness: Patient states that he has thoughts that a woman named Amaris has been hanging around, trying to him and his appeared at work and at his home. He states that he has dated her in the past and states that she is certain she is the patient's fianc. He states that even the assistant principal at his primary care's office told him this. Patient states he has not been taking medications because he stopped them 1-2 months ago and was being seen at [facility] counseling was last seen there in October of this year. He states on occasion his primary care physician has also been giving him meds. Patient states that he has used Xanax on occasion and was prescribed Xanax 0.5 mg, Strattera 80 mg a day, Abilify 10 mg a day and Lexapro 20 mg a day. He states that he stopped most of them because the side effects but could not elicit what those were. Patient states that he has slept about 4 hours a night recently states that this girl is following him and denied any suicidal or homicidal thoughts. He denied that he's having any racing thoughts and could not really tell me why he has not been going to work recently. Patient states that he has had these feelings about a woman in the past and this was around the time of his first admission, he states he was on medication for 5 years after his first admission and when he lost the medications on a vacation 5 years ago he stopped them. Patient states that he has been depressed in the past with suicidal thoughts but has never attempted. He states he was last depressed 5-6 years ago. He states that he also has had racing thoughts in the past at times talking too fast or too much and sleeping 3-4 hours a night. He states he has been impulsive in the past spending money using alcohol and drugs and also has had an increase in insects. But he denies any of these currently. Patient states he's been diagnosed with disc depression with psychotic features in the past. Patient also reports episodes of panic were his chest tightens he feels anxious and this occurs from time to time. Past Psychiatric History: Patient states he has 1 prior hospitalization here he thinks about 10 years ago and that was the first time he was ever treated. He states he was seen at [facility] for outpatient counseling. He states he has been on Seroquel in the past, Abilify, Strattera, Lexapro, Xanax and is unable to tell me what other medications he has been on. Patient denies any prior suicide attempts. 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 He states he is on inhaler and an antibiotic but could not tell me why. Current Visit: Yes Status: Acute Priority: Medium Hospital Course: Patient was admitted on a voluntary basis, routine laboratory studies were ordered, medical consultation was requested the patient was placed on routine observations. Patient was also ordered group and activity therapy. Patient and I discussed the medications that he been treated on in the past and he stated that he felt better on the Zyprexa so we discussed the use and side effects of Zyprexa and he will begin Zyprex 5 mg po qam and 15 mg po qhs. Lexapro 20 mg po qam Patient requires hospitalization due to his psychotic symptoms and to stabilize his mood. Mental status examination at the time of discharge: The patient presents alert, pleasant, and cooperative. There calmly seated without any agitated behavior. He reports that [his] mood is good. Affect is congruent and euthymic. [He] deny having any suicidal or homicidal ideation intent or plan. [He] denies any auditory or visual hallucinations. There is no evidence of any delusional thought content. [His] thought process is linear and goal-directed. [His] speech is fluent and nonpressured. [] memory and concentration is grossly intact for the purposes of this session. Discharge Medication List Escitalopram [Lexapro] 20 mg PO DAILY OLANZapine [ZyPREXA] 5 mg PO DAILY OLANZapine [ZyPREXA] 15 mg PO HS Patient Condition at Discharge: Good Plan - Discharge Summary Discharge Rx Participant: Yes New Discharge Prescriptions: New Escitalopram [Lexapro] 20 mg PO DAILY 30 Days #30 tab OLANZapine [ZyPREXA] 5 mg PO DAILY 30 Days #30 tab OLANZapine [ZyPREXA] 15 mg PO HS 30 Days #90 tab Discharge Medication List Escitalopram [Lexapro] 20 mg PO DAILY 30 Days #30 tab 10/12/18 [Rx] OLANZapine [ZyPREXA] 5 mg PO DAILY 30 Days #30 tab 10/12/18 [Rx] OLANZapine [ZyPREXA] 15 mg PO HS 30 Days #90 tab 10/12/18 [Rx] Follow up Appointment(s)/Referral(s): [facility] [Outside] - 10/18/18 12:30 pm (Enmanuel Luque) Bandar Shannon MD [Primary Care Provider] - 1-2 days Patient Instructions/Handouts: How to Stop Smoking (DC) Activity/Diet/Wound Care/Special Instructions: Remove all weapons and firearms from the home; Refrain from street drugs or alcohol; Diet and activity as tolerated; Follow-up with your PCP in 1-2 days; Keep all scheduled follow-up appointments for continuity of care; Take all meds. as prescribed; When you are in need of prescription refills, contact either your PCP or your aftercare psychiatrist; If you worsen or have any problems, call the Crisis Line at or go to the nearest for a psychiatric evaluation. Discharge Disposition: HOME SELF-CARE
== END 2018-10-12 12:40 | disposition home or self-care (01) | DRG 885 ==
LOC: EC 15:29 → 3MHU 19:43
PROVIDERS: ADMIT Psychiatry & Neurology Psychiatry; ATTEND Psychiatry & Neurology Psychiatry
DX: F33.3 Major depressive disorder, recurrent, severe with psychotic symptoms (principal); R45.851 Suicidal ideations; Z68.41 Body mass index [BMI] 40.0-44.9, adult; E66.9 Obesity, unspecified; F12.90 Cannabis use, unspecified, uncomplicated; F17.210 Nicotine dependence, cigarettes, uncomplicated; M54.9 Dorsalgia, unspecified; F41.9 Anxiety disorder, unspecified; Z79.899 Other long term (current) drug therapy
CPT/HCPCS: 80053; 80061; 80306; 81003; 82075; 82248; 83036; 84443; 85025; 99285

== ENCOUNTER → 2019-05-02 | Outpatient (CLI) | payer BC ==
--- NOTE | 2019-05-02 07:54 | US ---
EXAMINATION TYPE: US abdomen complete DATE OF EXAM: 05/02/2019 COMPARISON: NONE CLINICAL HISTORY: R10.12 Left upper quadrant pain. Intermittent left flank pain x 3 weeks EXAM MEASUREMENTS: Liver Length: 17.4 cm Gallbladder Wall: 0.2 cm CBD: 0.4 cm Spleen: 14.3 cm Right Kidney: 11.1 x 5.8 x 5.9 cm Left Kidney: 11.4 x 6.5 x 5.7 cm Difficult and limited study due to patient body habitus Pancreas: visualized portions wnl, limited by overlying midline bowel gas Liver: attenuating, increased echogenicity, heterogeneous with 2 hypoechoic areas adjacent to gallbl adder measuring 3.4cm and 2.0cm Gallbladder: wnl Evidence for sonographic Almeida's sign: no CBD: wnl Spleen: enlarged Right Kidney: wnl Left Kidney: wnl Upper IVC: wnl Abd Aorta: visualized portions wnl, limited by overlying midline bowel gas The visualized liver is heterogeneously hyperechoic. Evaluation for focal masses is suboptimal due to the heterogeneity. The intrahepatic portion of the IVC and visualized abdominal aorta are within nor mal limits. There is no evidence of shadowing mobile cholelithiasis. Common bile duct is unremarkab le. The visualized portions of the pancreas are homogenous. The spleen is enlarged at 14.3 cm long axis without intrasplenic lesion or surrounding ascites. Kidneys are symmetric and free of hydroneph rosis. No renal lesions are seen. IMPRESSION: Marked fatty infiltration of liver with areas of focal fatty sparing. Splenomegaly noted which may warrant further clinical workup.
== END | disposition home or self-care (01) ==
LOC: RADUSWWP 06:59
PROVIDERS: ATTEND Internal Medicine
DX: K76.0 Fatty (change of) liver, not elsewhere classified (principal); R16.1 Splenomegaly, not elsewhere classified; Z88.0 Allergy status to penicillin
CPT/HCPCS: 76700

== ENCOUNTER → 2019-05-14 | Outpatient (CLI) | payer BC ==
--- NOTE | 2019-05-14 09:32 | CT ---
EXAMINATION TYPE: CT abdomen wo/w con DATE OF EXAM: 05/14/2019 COMPARISON: None. HISTORY: Left sided pain CT DLP: 5255.3 mGycm, Automated Exposure Control for Dose Reduction was Utilized. CONTRAST: CT scan of the abdomen is performed with oral and without and with IV Contrast, patient injected with 100 mL of Isovue 300. FINDINGS: LUNG BASES: No significant abnormality is appreciated. LIVER/GB: Liver is isodense to spleen on noncontrast CT consistent with mild diffuse fatty infiltrati on. PANCREAS: No significant abnormality is seen. SPLEEN: No significant abnormality is seen. ADRENALS: No significant abnormality is seen. KIDNEYS: Noncontrast images show no renal calculi bilaterally. Postcontrast images show symmetrical m edullary uptake and excretion without concerning renal mass or hydronephrosis. BOWEL: The oral contrast reaches level of mid transverse colon. No suspicious small or large bowel di latation. Normal contrast-filled appendix is seen from cecum LYMPH NODES: No greater than 1cm abdominal lymph nodes are appreciated. OSSEOUS STRUCTURES: No significant abnormality is seen. OTHER: No significant additional abnormality is seen. IMPRESSION: No significant finding is seen to account for patient's clinical symptoms of left-sided pain.
== END | disposition home or self-care (01) ==
LOC: RADCTMAIN 07:51
PROVIDERS: ATTEND Internal Medicine
DX: R10.12 Left upper quadrant pain (principal); R19.09 Other intra-abdominal and pelvic swelling, mass and lump
CPT/HCPCS: 74170; Q9967

== ENCOUNTER → 2019-07-10 | Outpatient (CLI) | payer BC ==
[2019-07-10 14:40] LABS: Prothrombin Time 10.9 sec (9.0-12.0)
[2019-07-10 14:50] LABS: Basophils % (A) 1 %; Eosinophils # (A) 0.3 k/uL (0-0.7); Eosinophils % (A) 7 %; HCT 44.2 % (39.0-53.0); HGB 15.9 gm/dL (13.0-17.5); Lymphocytes # (A) 1.4 k/uL (1.0-4.8); Lymphocytes % (A) 31 %; MCHC 35.9 g/dL (31.0-37.0); MCV 89.1 fL (80.0-100.0); Mean Platelet Volume 6.3; Monocytes # (A) 0.3 k/uL (0-1.0); Monocytes % (A) 7 %; Neutrophils # (A) 2.3 k/uL (1.3-7.7); Neutrophils % (A) 52 %; Platelet Count 167 k/uL (150-450); RBC 4.96 m/uL (4.30-5.90); RDW 12.6 % (11.5-15.5); WBC 4.5 k/uL (3.8-10.6)
[2019-07-10 19:05] LABS: Albumin 4.3 g/dL (3.80-4.90); Albumin/Globulin Ratio 2.69 (1.60-3.17); Bilirubin, Conjugated 0.3 mg/dL (0.20-0.40); Bilirubin,Unconjugated 0.4 mg/dL; Globulin 1.6 g/dL (1.6-3.3); Total Bilirubin 0.7 mg/dL (0.2-1.2); Total Protein 5.9 g/dL (6.2-8.2)
[2019-07-10 20:24] LABS: Hepatitis A Antibody IgM Non-Reactive (Non-Reactive); Hepatitis B Core IgM Non-Reactive (Non-Reactive); Hepatitis B Surface Antigen Non-Reactive (Non-Reactive); Hepatitis C IgG Antibody Non-Reactive (Non-Reactive)
== END | disposition home or self-care (01) ==
LOC: LABWHC1 13:20
PROVIDERS: ATTEND Nurse Practitioner
DX: K76.0 Fatty (change of) liver, not elsewhere classified (principal); R10.12 Left upper quadrant pain
CPT/HCPCS: 36415; 80074; 80076; 82150; 83690; 85025; 85610

== ENCOUNTER 2022-09-01 11:14 | Emergency (ER) | payer OTHER, BC ==
[2022-09-01 11:24] VITALS: RESP 18; TEMP 97.7
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
[2022-09-01 14:12] VITALS: BP 147/82; PULSE 98
== END 2022-09-01 14:11 | disposition home or self-care (01) ==
LOC: EC 11:14
DX: S00.83XA Contusion of other part of head, initial encounter (principal); F17.290 Nicotine dependence, other tobacco product, uncomplicated; Z88.0 Allergy status to penicillin; V89.2XXA Person injured in unspecified motor-vehicle accident, traffic, initial encounter; Y92.89 Other specified places as the place of occurrence of the external cause
CPT/HCPCS: 70450; 99284

== ENCOUNTER → 2023-04-02 | Outpatient (CLI) | payer BC ==
[2023-04-02 23:01] LABS: Basophils # (A) 0.06 X 10*3/uL (0.00-0.10); Basophils % (A) 1.1 %; Eosinophils # (A) 0.27 X 10*3/uL (0.04-0.35); HCT 49.2 % (39.6-50.0); HGB 17.1 d/dL (12.0-15.0); Lymphocytes # (A) 1.22 X 10*3/uL (0.90-5.00); Lymphocytes % (A) 22.6 %; MCHC 34.8 d/dL (32.0-37.0); MCV 92.1 FL (80.0-97.0); Mean Platelet Volume 10.9 FL (9.5-12.2); Monocytes # (A) 0.41 X 10*3/uL (0.20-1.00); Monocytes % (A) 7.6 %; NRBC Per 100 WBC 0 X 10*3/uL (0.00-0.01); Neutrophils # (A) 3.41 X 10*3/uL (1.80-7.70); Neutrophils % (A) 63.3 %; Platelet Count 204 X 10*3/uL (140-440); RBC 5.34 X 10*6/uL (4.40-5.60); RDW 12.8 % (11.5-14.5); WBC 5.39 X 10*3/uL (4.50-10.00)
[2023-04-02 23:19] LABS: ALT 34 U/L (10-49); AST 26 U/L (14-35); Albumin 4.4 d/dL (3.8-4.9); Albumin/Globulin Ratio 1.69 Ratio (1.60-3.17); Alkaline Phosphatase 196 U/L (41-126); BUN/Creat Ratio 14.91 Ratio (12.00-20.00); Blood Urea Nitrogen 16.4 mg/dL (9.0-27.0); Calcium 9.5 mg/dL (8.7-10.3); Carbon Dioxide 21.7 mmol/L (21.6-31.8); Chloride 100 mmol/L (96-109); Chol/HDL Ratio 4.49 Ratio; Globulin 2.6 d/dL (1.6-3.3); Glucose 227 mg/dL (70-110); LDL Cholesterol,Calculated 132.5 mg/dL (0.0-131.0); Potassium 4.7 mmol/L (3.5-5.5); Sodium 134 mmol/L (135-145); Total Bilirubin 0.7 mg/dL (0.3-1.2)
== END | disposition home or self-care (01) ==
LOC: LABWHC1 10:54
PROVIDERS: ATTEND Nurse Practitioner
DX: I10 Essential (primary) hypertension (principal)
CPT/HCPCS: 36415; 80053; 80061; 83036; 84439; 84443; 85025

== ENCOUNTER → 2023-04-02 | Outpatient (CLI) | payer OTHER | END | disposition home or self-care (01) | LOC: LABWHC1 10:51 | PROVIDERS: ATTEND Nurse Practitioner | DX: Z53.9 Procedure and treatment not carried out, unspecified reason (principal) ==

== ENCOUNTER 2024-01-08 02:16 | Emergency (ER) | payer BC, OTHER ==
[2024-01-08 02:49] VITALS: TEMP 97.4
--- NOTE | 2024-01-08 03:29 | ED ---
General Adult HPI - General Chief complaint: Shortness of Breath Stated complaint: Bronchitis, wheezing, difficulty breathing Time Seen by Provider: 01/08/24 03:08 Source: patient Mode of arrival: ambulatory Limitations: no limitations - History of Present Illness Initial comments: 48-year-old male with a past medical history significant for obesity and COPD presenting to the ED with a chief complaint of cough. Patient states today onset of cough and dyspnea prompting presentation to the ED for further evaluation. No fever or chills. No abdominal pain, nausea vomiting diarrhea. No chest pain. No other complaints at this time. - Related Data Previous Rx's Medication Instructions Recorded Escitalopram [Lexapro] 20 mg PO DAILY 30 Days #30 tab 10/12/18 OLANZapine [ZyPREXA] 5 mg PO DAILY 30 Days #30 tab 10/12/18 OLANZapine [ZyPREXA] 15 mg PO HS 30 Days #90 tab 10/12/18 Albuterol Inhaler [Ventolin Hfa 1 - 2 puff INHALATION Q6H PRN #1 01/08/24 Inhaler] each predniSONE [Deltasone] 20 mg PO TID 5 Days #15 tab 01/08/24 Allergies Allergy/AdvReac Type Severity Reaction Status Date / Time Penicillins Allergy Unknown Unknown Verified 01/08/24 02:26 Childhood Review of Systems ROS Statement: Those systems with pertinent positive or pertinent negative responses have been documented in the HPI. ROS Other: All systems not noted in ROS Statement are negative. Past Medical History Past Medical History: No Reported History, Diabetes Mellitus, Hyperlipidemia, Hypertension Additional Past Medical History / Comment(s): vascular migraines History of Any Multi-Drug Resistant Organisms: None Reported Past Surgical History: Joint Replacement, Orthopedic Surgery Additional Past Surgical History / Comment(s): bilateral hip replacement Past Anesthesia/Blood Transfusion Reactions: No Reported Reaction Past Psychological History: Anxiety, Depression Smoking Status: Vaper Past Alcohol Use History: Heavy, Occasional Past Drug Use History: Marijuana General Exam Limitations: no limitations General appearance: alert Eye exam: Present: normal appearance Neck exam: Present: normal inspection Respiratory exam: Present: wheezes Cardiovascular Exam: Present: regular rate GI/Abdominal exam: Present: soft Neurological exam: Present: alert, oriented X3 Skin exam: Present: warm, dry Course Vital Signs 01/08/24 01/08/24 01/08/24 02:21 02:27 04:05 Temperature 97.4 F L Pulse Rate 98 94 Respiratory 20 22 18 Rate Blood Pressure 135/83 128/89 O2 Sat by Pulse 95 95 Oximetry 01/08/24 01/08/24 01/08/24 05:12 05:23 05:26 Temperature Pulse Rate 94 100 90 Respiratory 18 Rate Blood Pressure 130/88 O2 Sat by Pulse 99 Oximetry Medical Decision Making - Medical Decision Making Was pt. sent in by a medical professional or institution (, PA, [employer], urgent care, hospital, or intermediate...) When possible be specific @ -No Did you speak to anyone other than the patient for history (EMS, parent, family, police, friend...)? What history was obtained from this source @ -No Did you review nursing and triage notes (agree or disagree)? Why? @ -I reviewed and agree with nursing and triage notes Were old charts reviewed (outside hosp., previous admission, EMS record, old EKG, old radiological studies, urgent care reports/EKG's, intermediate records)? Report findings @ -No old charts were reviewed Differential Diagnosis (chest pain, altered mental status, abdominal pain women, abdominal pain men, vaginal bleeding, weakness, fever, dyspnea, syncope, headache, dizziness, GI bleed, back pain, seizure, CVA, palpatations, mental health, musculoskeletal)? @ -Differential Dyspnea: Coronary syndrome, arrhythmia, tamponade, asthma, COPD, pulmonary embolism, pneumonia, pneumothorax, pulmonary effusion, anaphylaxis, diabetic ketoacidosis, flailed chest, pulmonary contusion, diaphragmatic rupture, anemia, neuromuscular, this is not meant to be an all-inclusive list. EKG interpreted by me (3pts min.). @ -EKG interpreted me showing a sinus rhythm with nonspecific findings at a rate of 97 bpm, MA 157, QRS 82, QT/QTc 326/380. X-rays interpreted by me (1pt min.). @ -Chest x-ray interpreted me which show no evidence of acute finding. CT interpreted by me (1pt min.). @ -None done U/S interpreted by me (1pt. min.). @ -None done What testing was considered but not performed or refused? (CT, X-rays, U/S, labs)? Why? @ -None What meds were considered but not given or refused? Why? @ -None Did you discuss the management of the patient with other professionals (professionals i.e. , PA, [employer], lab, RT, psych nurse, transition social worker, intellectual property lawyer, teacher, animal park code enforcement officer, family service caseworker)? Give summary @ -No Was smoking cessation discussed for >3mins.? @ -No Was critical care preformed (if so, how long)? @ -No Were there social determinants of health that impacted care today? How? (Homelessness, low income, unemployed, alcoholism, drug addiction, transportation, low edu. Level, literacy, decrease access to med. care, snf, rehab)? @ -No Was there de-escalation of care discussed even if they declined (Discuss DNR or withdrawal of care, Hospice)? DNR status @ -No What co-morbidities impacted this encounter? (DM, HTN, Smoking, COPD, CAD, Cancer, CVA, ARF, Chemo, Hep., AIDS, mental health diagnosis, sleep apnea, morbid obesity)? @ -COPD, obesity Was patient admitted / discharged? Hospital course, mention meds given and route, prescriptions, significant lab abnormalities, going to OR and other pertinent info. @ -Discharge 48-year-old male presenting to the ED with acute onset of cough and dyspnea today. On examination patient has wheezing in bilateral lung [place], however, no accessory muscle use or evidence of respiratory distress. While in the ED patient is saturating 95 to 97% on room air. Chest x-ray revealed no evidence of acute finding. Patient requesting antibiotics and became upset when I noted that he would not be receiving antibiotics. Patient was advised that antibiotic use at this time is not indicated. Patient provided prednisone. Cephid negative. Patient discharged home in stable condition. - Lab Data Lab Results 01/08/24 Range/Units 03:35 Influenza Type A (PCR) Not Detected (Not Detectd) Influenza Type B (PCR) Not Detected (Not Detectd) RSV (PCR) Not Detected (Not Detectd) SARS-CoV-2 (PCR) Not Detected (Not Detectd) Disposition Clinical Impression: Viral URI, COPD exacerbation Disposition: HOME SELF-CARE Condition: Good Prescriptions: predniSONE [Deltasone] 20 mg PO TID 5 Days #15 tab Albuterol Inhaler [Ventolin Hfa Inhaler] 1 - 2 puff INHALATION Q6H PRN #1 each PRN Reason: Dyspnea Is patient prescribed a controlled substance at d/c from ED?: No Referrals: Jaquan Poole [Primary Care Provider] - 1-2 days
[2024-01-08] MEDS: predniSONE 20 MG TAB PO STA (03:42)
[2024-01-08 04:06] VITALS: RESP 18
[2024-01-08] MEDS: IPRATROPIUM-ALBUTEROL 3 ML NEB INHALATION STA (05:11)
--- NOTE | 2024-01-08 05:29 | XR ---
EXAM: XR Chest, 2 Views CLINICAL HISTORY: ITS.REASON XR Reason: r/o pna TECHNIQUE: Frontal and lateral views of the chest. COMPARISON: No relevant prior studies available. FINDINGS: Lungs: Unremarkable. No consolidation. Pleural space: Unremarkable. No pneumothorax. Heart: Unremarkable. No cardiomegaly. Mediastinum: Unremarkable. Normal mediastinal contour. Bones/joints: Unremarkable. No acute fracture. IMPRESSION: Normal chest x-rays.
[2024-01-08 05:56] VITALS: PULSE 90
[2024-01-08 05:57] VITALS: BP 130/88
== END 2024-01-08 05:27 | disposition home or self-care (01) ==
LOC: EC 02:16
DX: J06.9 Acute upper respiratory infection, unspecified (principal); J44.1 Chronic obstructive pulmonary disease with (acute) exacerbation; E66.9 Obesity, unspecified; F17.290 Nicotine dependence, other tobacco product, uncomplicated; Z88.0 Allergy status to penicillin; Z68.42 Body mass index [BMI] 45.0-49.9, adult
CPT/HCPCS: 94640; 87636; 71046; 99285; J7512; 93005